=== PATIENT | female | born 1995 | race Caucasian/White ===

== ENCOUNTER → 2024-10-04 11:01 | Outpatient (CLI) | payer OTHER, SELFPAY ==
--- NOTE | 2024-10-04 11:03 | DI.US.S_ITS ---
PROCEDURE: US PELVIC COMPLETE INDICATIONS: PERSISTENT PELVIC PAIN,IRREGULAR MENSES TECHNIQUE: Real-time scanning was performed of the pelvic organs, with image documentation. Additional endovaginal scanning was necessary due to incomplete visualization of the adnexal and endometrial structures by transabdominal scanning. COMPARISON: None. FINDINGS: Uterus: Uterus is anteverted and normal in size at 8.6 x 4.2 x 4.7 cm. The myometrium is homogeneous. The endometrium measures 20 mm combined thickness. Ovaries: The right ovary measures 4.4 x 2.5 x 2.2 cm, with a calculated ovarian volume of 12.6 cc. The left ovary measures 4.1 x 1.7 x 4.1 cm, with a calculated ovarian volume of 15.1 cc. The ovaries have a normal sonographic appearance. Less than 12 follicles can be seen in each ovary. A echogenic cystic lesion is present within the right ovary which measures 1.8 x 1.8 x 1.7 cm. Other: No pathologic free abdominal or pelvic fluid. IMPRESSION: 1. Endometrium which is the upper limits of normal for thickness. Consider repeat scan in the proliferative phase. 2. Sonographic findings suggesting right ovarian endometrioma versus hemorrhagic cyst. 6-12 week sonographic follow-up recommended to further characterize this finding. We strive to produce accurate, complete, and clear reports of imaging services. To assist us in improving patient care, this report was composed using standard report templates and voice recognition software. Therefore, it may contain abnormal punctuation, insertions and/or omissions. Occasional wrong-word or sound-alike substitutions may occur. Though we review the report and make efforts to correct it, we do recommend that the report be read carefully in proper context to recognize any text inaccuracies. Dictated by: Zainab Lugo M.D. on 10/04/2024 at 13:21 Approved by: Zainab Lugo M.D. on 10/04/2024 at 13:24
== END ==
DX: R10.2 Pelvic and perineal pain (principal)
CPT/HCPCS: 76830; 76856